=== PATIENT | male | born 1960 | race African-American/Black ===

== ENCOUNTER → 2021-07-04 | Day surgery (SDC) | payer OTHER, BC ==
[~2021-07-04] VITALS: Ht 180.3 cm; Wt 74.8 kg
[~2021-07-04] MED LIST: BUPIVACAINE HCL/PF 0.5% (5MG/ML) 30ML ONE; CEFAZOLIN SODIUM 1000MG/VIAL ONE; FENTANYL CITRATE/PF 50MCG/ML 2ML VIAL IV PRN; FENTANYL CITRATE/PF 50MCG/ML 2ML VIAL ONE; HYDROCODONE/ACETAMINOPHEN 5/325MG TABLET PO NR; IBUP-2030 MT; KETOROLAC 30MG/ML VIAL ONE; LACTATED RINGERS 1,000 ML IV SCH; LIDOCAINE HCL 1% 10 MG/ML 10ML VIAL ONE; MIDAZOLAM HCL 2 MG/2 ML VIAL ONE; NALOXONE HCL 0.4MG/ML VIAL IV PRN; PHENYLEPHRINE HCL 10 MG/ML 1ML (IV VIAL) IV ONE; POLYMYXIN B SULFATE 500000 UNITS/VIAL ONE; PROPOFOL 200MG/20ML VIAL IV ONE; SKIN ADHESIVE 0.7 GM EA TOP ONE; SODIUM CHLORIDE 0.9% 10ML VIAL ONE; TAMS-11 MT
[2021-07-04 11:07] VITALS: BP 142/103
== END | disposition home or self-care (01) ==
LOC: OR 05:27
PROVIDERS: ATTEND Specialist
DX: K40.90 Unilateral inguinal hernia, without obstruction or gangrene, not specified as recurrent (principal); E88.2 Lipomatosis, not elsewhere classified; N40.0 Benign prostatic hyperplasia without lower urinary tract symptoms; Z79.899 Other long term (current) drug therapy; Z98.890 Other specified postprocedural states
CPT/HCPCS: 49505; 88304; C1781; J0690; J1885; J2250; J2370; J2704; J3010; J3490